=== PATIENT | female | born 1965 | race Caucasian/White ===

== ENCOUNTER → 2016-11-17 | Outpatient (CLI) | payer OTHER ==
[~2016-11-17] MED LIST: FLOMAX0.4 MG PO; IBUPROFEN 800800 M1 PO; TRAMADOL 50 MG50 MG PO
== END | disposition home or self-care (01) ==
LOC: LITH 06:46
DX: N20.0 Calculus of kidney (principal); Z98.890 Other specified postprocedural states

== ENCOUNTER 2017-06-16 21:08 | Inpatient (IN) | payer OTHER ==
[~2017-06-16] VITALS: Ht 172.7 cm; Wt 96.2 kg
--- NOTE | ~2017-06-16 | H ---
[facility] [place] [address] HISTORY AND PHYSICAL Name: MYRANDA BAHENA Room #: 407-P [facility] IN M.R.#: [id number] Admission: 06/16/17 Attend Phys: Bigg Alejandraaleja Rafaelshantelle Discharge: 06/18/17 Date of : 65 Report #: [id number] THIS REPORT FOR: //name// CC: Benedicto FATIMA DICTATED BY: Gregoria MCLAIN ATTENDING PHYSICIAN: Dr. Aburto. PRIMARY CARE PHYSICIAN: None. CHIEF COMPLAINT: Right flank pain. HISTORY OF PRESENT ILLNESS: The patient is a 52-year-old female who has a history of nephrolithiasis. She has had 3 prior lithotripsies and the last 2 were in October and November of this year. She started having right flank pain yesterday, but she has not felt well for the last few days. She has been having some low-grade fevers as well as chills. She has noticed increasing urinary frequency to the point she is voiding every 15 minutes. She has been having dysuria. She started taking some leftover Cipro that she had at home. Her pain got worse. She describes it as a dull ache that does become more severe at times. She did have some associated nausea and vomiting yesterday and continued to feel somewhat nauseous throughout the day. She had a normal bowel movement yesterday. She went into the ER initially at [facility], where her prior urologist had been. She was again noted to have a minimally obstructing right distal ureteral stone as well as a 22-mm nonobstructing calculus in the right renal pelvis. She had previously known about the large stone. She was given Toradol and fentanyl at [facility] and because they no longer have urology, she wanted to be transferred to [facility] so she would be within the [facility] network. She currently rates her pain 4-5/10 and stated that the Toradol and fentanyl really did not help that much. PAST MEDICAL HISTORY: Nephrolithiasis. PAST SURGICAL HISTORY: Lithotripsy x 3, x 1 and tonsillectomy. ALLERGIES: BACTRIM, UNKNOWN REACTION. HOME MEDICATIONS: Ibuprofen p.r.n. and tramadol p.r.n. SOCIAL HISTORY: The patient denies any tobacco, alcohol or drug use. She lives at home with her spouse. 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 FAMILY HISTORY: Her sisters are both diabetic. Her mother is alive and healthy. She does not know any medical information about her father. She does have an aunt with breast cancer and grandmother with pancreatic cancer. [address] [address] HISTORY AND PHYSICAL Name: MYRANDA BAHENA Room #: 407-P [facility] IN M.R.#: [id number] Admission: 06/16/17 Attend Phys: Bigg Rayo Discharge: 06/18/17 Date of : 65 Report #: [id number] REVIEW OF SYSTEMS: Twelve-point review of systems was reviewed with this patient and otherwise negative unless stated in the HPI. PHYSICAL EXAMINATION: GENERAL: The patient is an alert female in no acute distress. VITAL SIGNS: Temperature is 36.9, heart rate 107, respirations 15, blood pressure is 134/72 and oxygen 100% on room air. HEENT: PERRLA. Sclerae are nonicteric. Oral mucosa is pink and moist. NECK: Supple. No JVD noted. CARDIAC: Normal S1, S2. No murmurs, rubs or gallops. RESPIRATORY: Breath sounds are clear bilaterally. No wheezing or rhonchi. Breathing is nonlabored. ABDOMEN: Soft and nontender with positive bowel sounds. She does have some right CVA tenderness. VASCULAR: No edema noted. Pedal pulses are 2+. NEUROLOGIC: The patient is alert and oriented x 3. Speech is clear. She is moving all extremities equally and answering questions appropriately. No focal neuro deficits noted. LABS AND DIAGNOSTICS: WBC is 13.3, hemoglobin 13.6 and platelets 232,000. Sodium 140, potassium 3.5, BUN 22, creatinine 1.2 and glucose 118. U/A was positive for nitrite, large leukocyte esterase, large wbcs, large amount of blood and moderate bacteria. CT of abdomen and pelvis done at [facility] showed a 5.5 mm obstructing calculus in the distal right ureter, causing mild proximal hydroureteronephrosis, and there is a 22-mm nonobstructing calculus in the right renal pelvis with additional smaller, nonobstructing calculi in the right inferior renal pole and no perinephric stranding was seen. No left renal calculi noted. ASSESSMENT AND PLAN: 1. Obstructing right ureteral calculus. The patient will be kept n.p.o. after midnight to have Urology evaluate for possible cystoscopy in the morning. We will continue IV fluids. She was given a dose of Rocephin at [facility], which we will continue daily. Continue fentanyl and Toradol for pain control. 2. Urinary tract infection. This is likely secondary to the stone. We will follow urine cultures from [facility] and continue Rocephin daily. 3. Deep venous thrombosis prophylaxis. Place SCDs. We will continue to follow the patient closely throughout the hospitalization and make changes based on clinical status. <ELECTRONICALLY SIGNED> By: Benedicto Aburto MD 06/18/17 1827 0130 0200 Benedicto Aburto MD /nt
--- NOTE | ~2017-06-16 | O ---
[facility] [place] [address] OPERATIVE REPORT Name: MYRANDA BAHENA Room #: 407-P [facility] IN M.R.#: [id number] Admission: 06/16/17 Attend Phys: Bigg Rayo Discharge: Date of : 65 Report #: [id number] THIS REPORT FOR: //name// CC: Bigg FATIMA DATE OF SERVICE: 06/18/2017 DATE OF SERVICE: 06/18/2017 PREOPERATIVE DIAGNOSIS: Right ureteral and kidney stone. POSTOPERATIVE DIAGNOSIS: Right ureteral and kidney stone. PROCEDURE: Cystoscopy, right retrograde pyelogram, right ureteroscopy, stone extraction, right ureteral stent placement. SURGEON: Dr. Andreas James. PROPERTY MANAGEMENT INTERN: None. ANESTHESIA: General with LMA. ESTIMATED BLOOD LOSS: Minimal. FLUIDS: See anesthesia flow sheet. SPECIMEN: Stone for analysis. DRAINS: Right 6-Italian x 26 cm double-J ureteral stent. COMPLICATIONS: None. INDICATIONS: This is a 52-year-old woman with history of nephrolithiasis, had a known approximately 2 cm right renal pelvis stone, had prior failed shockwave lithotripsy. She was actually transferred from [facility] with right flank pain. A CT scan demonstrated approximately 2.2 cm renal calculus in the right renal pelvis as well as a 5 mm ureteral fragment near the UVJ. She had persistent pain, not been able to pass the fragment. We discussed options for further trial of passage versus possible ureteroscopy with stent placement. She desired to proceed with ureteroscopy. Risks, benefits, alternatives discussed at length, the risks including bleeding, infection, damage to the ureter, ureteral stricture, need for stent, need for subsequent procedures. She acknowledged that she understood these risks. She asked pertinent questions, which were answered and ultimately elected to proceed. Of note, we specifically discussed that this procedure would be to address her small obstructing ureteral [facility] [address] [place] [address] OPERATIVE REPORT Name: MYRANDA BAHENA Room #: 407-P ADM IN M.R.#: [id number] Admission: 06/16/17 Attend Phys: Bigg Rayo Discharge: Date of : 65 Report #: [id number] fragment. The large renal pelvis stone would need to be addressed at a later time given its size. PROCEDURE AND FINDINGS: The patient was identified in the preoperative holding area. She consented. She was transported to the cystoscopy suite where general anesthetic was administered. She was positioned in the dorsal lithotomy position with all appropriate pressure points padded. She was prepped and draped in the typical sterile fashion. A timeout was performed confirming correct patient, procedure and laterality. She was on scheduled IV antibiotics on the floor. We began by inserting the rigid cystoscope through the urethra into the bladder. Urethra and bladder neck were without abnormalities. Bladder demonstrated mild cystocele. No stones, tumors, or papillary lesions. Bilateral ureteral orifices were orthotopic in position. Right ureteral orifice was identified. This was gently cannulated with a 5 Italian open-ended catheter. Retrograde pyelogram was performed demonstrating [id number] hydroureteronephrosis all the way down to the right distal ureter. The distal fragment was not well seen; however, the approximately 2 cm renal pelvis stone was visualized. There were no other filling defects. Sensor wire was placed through the ureteral orifice up into the right kidney. A 6.9 Italian rigid ureteroscope was then gently passed through the urethra into the bladder and up the right ureteral orifice. A stone was encountered approximately 5-10 mm from the orifice. This was grasped with a 1.9 Italian nitinol basket and extracted and sent for stone analysis. A 6-Italian x 26 cm double-J ureteral stent was then placed under radiographic guidance with good proximal and distal curls confirmed. Bladder was drained, scope was removed, procedure was terminated. The patient was awakened and transported to recovery room having suffered no apparent complication. Plan will be for an interval procedure to address her large right renal pelvis stone. I have offered her a right percutaneous nephrolithotomy versus a repeat right ureteroscopy, possibly in two stages. By: [id number] Andreas James MD /nt
--- NOTE | ~2017-06-16 | HC ---
[facility] [place] [address] CONSULTATION Name: JOSEFMYRANDA Room #: 407-P ADM IN M.R.#: [id number] Admission: 06/16/17 Attend Phys: Bigg Rayo Discharge: Date of : 65 Report #: [id number] THIS REPORT FOR: //name// CC: Bigg FATIMA CHIEF COMPLAINT: Right ureteral stone. HISTORY OF PRESENT ILLNESS: The patient is a delightful 52-year-old woman who is being seen today at the request of Dr. Aburto for evaluation and management of a right distal ureteral stone. Specifically, she presented to [facility] with severe right flank pain and intermittent chills. She was transferred to [place] for definitive management; however, she has had several months of right back pain and has had pain for the last 4 days. Her history is significant for undergoing lithotripsy last spring and at that time she reports her stone was about 1.7 cm in the right kidney; however, the CT report from [place] reveals a 22 mm stone in the right renal pelvis as well as a right distal ureteral stone. ALLERGIES: SULFA. MEDICATIONS: Ibuprofen and tramadol. PAST SURGICAL HISTORY: Lithotripsy, , tonsillectomy. ILLNESSES: Nephrolithiasis. FAMILY HISTORY: Sisters are diabetic. She has an aunt with breast cancer, grandmother with pancreatic cancer. REVIEW OF SYSTEMS: She denies shortness of breath or chest pain. PHYSICAL EXAMINATION: GENERAL: She is a comfortable-appearing woman, sitting up in bed. VITAL SIGNS: Temperature is 36.9, pulse 89, blood pressure 101/66. ABDOMEN: Soft, without masses. LABORATORY DATA: White count 8.9, hemoglobin 11.7, hematocrit 33.9, platelets 209,000. Sodium 142, potassium 3.9, chloride 110, CO2 is 25, BUN 21, creatinine 1.2, calcium 8.7. Urinalysis was positive for nitrites and leukocyte esterase and white cells with moderate bacteria. IMPRESSION: Partially obstructing right distal ureteral stone. PLAN: Discussed endoscopic management of this right distal ureteral stone with laser ablation and/or stent placement. Risks, benefits, and complications were discussed including risk of open surgery, sepsis and bleeding. She understands [address] [address] CONSULTATION Name: MYRANDA BAHENA Room #: [facility] IN M.R.#: [id number] Admission: 06/16/17 Attend Phys: Bigg Rayo Discharge: Date of : 65 Report #: [id number] complications could occur, which may not have been foreseen or discussed. If she is found to have purulent matter from her kidney, she may undergo stenting only. <ELECTRONICALLY SIGNED> By: Johnathon Wade MD 06/18/17 0642 [id number] MD dinesh Obregon
[2017-06-16 22:55] VITALS: BP 134/72
[2017-06-17 04:28] VITALS: BP 101/66
[2017-06-17 06:06] LABS: HEMATOCRIT 33.9 % (37.0-47.0); HEMOGLOBIN 11.7 gm/dL (12.0-15.0); MCH 29.4 pg (26.0-34.0); MCHC 34.4 g/dL (28.0-37.0); MCV 85.7 fL (80.0-100.0); RBC 3.96 mil/uL (4.20-5.00); RDW 13.4 % (10.5-14.5); WBC 8.9 thou/uL (4.0-11.0)
[2017-06-17 06:21] LABS: CALCIUM 8.7 mg/dL (8.5-10.1); CREATININE 1.2 mg/dL (0.6-1.0); POTASSIUM 3.9 mmol/L (3.5-5.1)
[2017-06-17 08:07] VITALS: BP 118/77
[2017-06-17 20:00] VITALS: BP 128/77
[2017-06-17 20:02] LABS: URINE BILIRUBIN NEGATIVE (Negative); URINE BLOOD 2+ (Negative); URINE COLOR YELLOW; URINE GLUCOSE-RANDOM* NEGATIVE (Negative); URINE KETONES NEGATIVE (Negative); URINE PROTEIN (DIPSTICK) TRACE (Negative); URINE UROBILINOGEN 0.2 E.U./dl (0.2-1.0)
[2017-06-17 20:06] LABS: URINE LEUKOCYTES-REFLEX 2+ (Negative)
[2017-06-17 20:19] LABS: CRYSTALS None Seen /LPF (None Seen); SQUAMOUS 4-10 Moderate /LPF (0-3)
[2017-06-17 20:20] LABS: CASTS None Seen /LPF (None Seen); URINE RBC 0-2 Rare /HPF (0-2); URINE WBC-REFLEX >25 Many /HPF (0-5)
[2017-06-18 03:58] LABS: ABSOLUTE NEUTROPHILS 4.3 thou/uL (1.4-8.2); BASOPHILS 0.6 % (0.0-2.0); EOSINOPHILS 3.8 % (0.0-3.0); HEMATOCRIT 32.8 % (37.0-47.0); HEMOGLOBIN 11.1 gm/dL (12.0-15.0); LYMPHOCYTES 25.4 % (24.0-44.0); MANUAL DIFF NO; MCH 29.4 pg (26.0-34.0); MCHC 33.7 g/dL (28.0-37.0); MCV 87.2 fL (80.0-100.0); MONOCYTES 6.4 % (1.0-8.0); PLATELET COUNT 204 thou/uL (150-400); POLYS 63.8 % (36.0-66.0); RBC 3.76 mil/uL (4.20-5.00); RDW 13.3 % (10.5-14.5); WBC 6.7 thou/uL (4.0-11.0)
[2017-06-18 04:07] LABS: CALCIUM 8.4 mg/dL (8.5-10.1); CREATININE 0.9 mg/dL (0.6-1.0); MAGNESIUM 1.5 mg/dL (1.8-2.4); POTASSIUM 3.6 mmol/L (3.5-5.1)
[2017-06-18 04:30] VITALS: BP 128/77
[2017-06-18 08:09] VITALS: BP 116/95
[2017-06-18 10:13] VITALS: BP 141/69
[2017-06-18] MEDS ORDERED: CIPRO500 MG PO (14:55)
[2017-06-18] MEDS ORDERED: TRAMADOL 50 MG50 MG PO (14:55)
[2017-06-18] MEDS ORDERED: FLOMAX0.4 MG PO (14:55)
[2017-06-18 15:31] VITALS: BP 113/65
[2017-06-18 16:19] VITALS: BP 113/65
== END 2017-06-18 18:25 | disposition home or self-care (01) | DRG 668 ==
LOC: 4N 21:08
PROVIDERS: Internal Medicine Critical Care Medicine; Nurse Practitioner; Nurse Practitioner Acute Care
PROC: 0TC68ZZ Extirpation of Matter from Right Ureter, Via Natural or Artificial Opening Endoscopic (ICD-10-PCS; principal; 2017-06-18)
PROC: 0T768DZ Dilation of Right Ureter with Intraluminal Device, Via Natural or Artificial Opening Endoscopic (ICD-10-PCS; 2017-06-18)
PROC: BT1D1ZZ Fluoroscopy of Right Kidney, Ureter and Bladder using Low Osmolar Contrast (ICD-10-PCS; 2017-06-18)
DX: N20.2 Calculus of kidney with calculus of ureter (principal); N17.0 Acute kidney failure with tubular necrosis; N39.0 Urinary tract infection, site not specified; N28.9 Disorder of kidney and ureter, unspecified; E83.42 Hypomagnesemia; Z88.1 Allergy status to other antibiotic agents; Z83.3 Family history of diabetes mellitus; Z80.0 Family history of malignant neoplasm of digestive organs; Z88.2 Allergy status to sulfonamides; Z80.3 Family history of malignant neoplasm of breast
CPT/HCPCS: 10790; 50010; 50101; 50164; 50478; 51620; 51767; 56674; 62110; 62900; 64037; 70005

== ENCOUNTER 2021-01-28 07:29 | Emergency (ER) | payer OTHER ==
[~2021-01-28] VITALS: Ht 172.7 cm; Wt 102.1 kg
[~2021-01-28 07:29] MED LIST changes: +CIPRO500 MG PO; +MACROBID 100 M100 M2 PO
[2021-01-28] MEDS ORDERED: SUPER THERAVIT1 EACH PO (07:38)
[2021-01-28] MEDS ORDERED: VIT D3 PO (07:38)
[2021-01-28 07:57] LABS: URINE BILIRUBIN NEGATIVE (Negative); URINE BLOOD 3+ (Negative); URINE CLARITY CLEAR; URINE COLOR YELLOW; URINE GLUCOSE-RANDOM* NEGATIVE (Negative); URINE KETONES NEGATIVE (Negative); URINE LEUKOCYTES-REFLEX NEGATIVE (Negative); URINE NITRITE-REFLEX NEGATIVE (Negative); URINE PROTEIN (DIPSTICK) NEGATIVE (Negative); URINE SPECIFIC GRAVITY >= 1.030 (1.005-1.035); URINE UROBILINOGEN 0.2 E.U./dl (0.2-1.0)
[2021-01-28 08:10] LABS: SQUAMOUS >10 Many /LPF (0-3)
[2021-01-28 08:11] LABS: CASTS None Seen /LPF (None Seen); MUCUS >6 Heavy strn/LPF (None Seen)
[2021-01-28 08:12] LABS: BACTERIA-REFLEX None Seen /HPF (None Seen); CRYSTALS None Seen /LPF (None Seen); URINE WBC-REFLEX 0-5 Rare /HPF (0-5)
[2021-01-28 09:22] LABS: ABSOLUTE NEUTROPHILS 4.6 thou/uL (1.4-8.2); BASOPHILS 0.5 % (0.0-2.0); EOSINOPHILS 3.1 % (0.0-3.0); HEMOGLOBIN 13.6 gm/dL (12.0-15.0); LYMPHOCYTES 18.9 % (24.0-44.0); MCH 28.9 pg (26.0-34.0); MCHC 33.2 g/dL (28.0-37.0); MCV 87.1 fL (80.0-100.0); MONOCYTES 5.7 % (1.0-8.0); PLATELET COUNT 237 thou/uL (150-400); POLYS 71.8 % (36.0-66.0); RDW 13.9 % (10.5-14.5); WBC 6.4 thou/uL (4.0-11.0)
[2021-01-28 09:31] LABS: CALCIUM 8.7 mg/dL (8.5-10.1); CREATININE 0.9 mg/dL (0.6-1.0); POTASSIUM 3.8 mmol/L (3.5-5.1)
[2021-01-28 09:38] LABS: ALBUMIN 3.6 g/dL (3.4-5.0); TOTAL BILIRUBIN 0.4 mg/dL (0.2-1.0)
[2021-01-28] MEDS ORDERED: TAMSULOSIN HCL0.4 MG PO (09:45)
[2021-01-28] MEDS ORDERED: ZOFRAN ODT4 MG PO (09:45)
[2021-01-28] MEDS ORDERED: NORCO5 PO (09:45)
[2021-01-28 10:05] VITALS: BP 126/65
== END 2021-01-28 10:10 | disposition home or self-care (01) ==
LOC: ER 07:29
PROVIDERS: Emergency Medicine
DX: N20.1 Calculus of ureter (principal); Z87.442 Personal history of urinary calculi; Z90.89 Acquired absence of other organs; Z98.890 Other specified postprocedural states; Z79.899 Other long term (current) drug therapy; Z88.2 Allergy status to sulfonamides

== ENCOUNTER → 2021-02-03 | Outpatient (CLI) | payer OTHER ==
[~2021-02-03] MED LIST changes: +NORCO5 PO; +SUPER THERAVIT1 EACH PO; +TAMSULOSIN HCL0.4 MG PO; +VIT D3 PO; +ZOFRAN ODT4 MG PO
== END ==
LOC: MRI 07:54
DX: Z53.9 Procedure and treatment not carried out, unspecified reason (principal)

== ENCOUNTER → 2021-03-19 | Day surgery (SDC) | payer OTHER ==
[~2021-03-19] VITALS: Ht 172.7 cm; Wt 99.8 kg
--- NOTE | ~2021-03-19 | O ---
[facility] [place] [address] OPERATIVE REPORT Name: MYRANDA BAHENA Room #: [facility].#: [id number] Admission: 03/19/21 Attend Phys: Andreas James MD Discharge: Date of : 65 Report #: [id number] THIS REPORT FOR: cc: FAM - Family physician unknown FAM - Family physician unknown Andreas James MD ~ DATE OF SERVICE: 03/19/2021 PREOPERATIVE DIAGNOSIS: Right ureteral stone. POSTOPERATIVE DIAGNOSIS: Right ureteral stone. PROCEDURE PERFORMED: Cystoscopy, right retrograde pyelogram, right diagnostic ureteroscopy. SURGEON: Andreas James MD BRIDGE OPERATOR: None. ANESTHESIA: General. ESTIMATED BLOOD LOSS: Minimal. FLUIDS: See anesthesia flow sheet. SPECIMENS: None. DRAINS: None. COMPLICATIONS: None. INDICATIONS FOR PROCEDURE: A 56-year-old woman with a history of recurrent nephrolithiasis, was found to have right-sided distal ureteral stone evaluation for flank and abdominal pain. She saw me in consultation with still having pain at that time. Also, unfortunately is undergoing chemotherapy for breast cancer and had some mild renal insufficiency recently, she has not seen a stone pass. Sent her for a KUB which did not definitively demonstrate the stone. We discussed option for a ureteroscopy with possible laser lithotripsy, stent placement. Risks, benefits and alternatives were discussed at length the risks including bleeding, infection, damage to urethra, bladder, ureter, need for subsequent procedures and treatments as well as cardiopulmonary complications from anesthesia. As she was still having pain and was starting a cycle of chemotherapy a little over a week, we did decide to proceed. PROCEDURAL FINDINGS: The patient was identified in the preoperative holding area. She is marked and consented. She was transported to the operative suite [facility] [address] [place] [address] OPERATIVE REPORT Name: MYRANDA BAHENA Teresa Room #: [facility].#: [id number] Admission: 03/19/21 Attend Phys: Andreas James MD Discharge: Date of : 65 Report #: [id number] where general anesthetic was administered. She was positioned in lithotomy position with all appropriate pressure points padded. She was prepped and draped in typical sterile fashion. Time-out was performed confirming correct patient, procedure and laterality. She received preoperative IV antibiotics. We began by placing the rigid cystoscope through the urethra into the bladder. Urethra and bladder neck are unremarkable. Bladder was normal in appearance. No stones, tumors or other lesions. Bilateral ureteral orifices orthotopic in position, normal in appearance. The right ureteral orifice was identified and it was gently cannulated with 5-Lao open-ended catheter. A gentle retrograde pyelogram was performed, it demonstrated minimal dilation of the right collecting system. No concerning filling defects. Given her report of continued pain and no passage of stone, I did feel it was necessary to confirm that the stone had passed. I placed a Sensor wire up the right ureteral orifice coiled this in the right renal pelvis, placed a rigid ureteroscope carefully through the urethra into the bladder and up the right ureteral orifice, examined the entirety of the right ureter. This was clear of stone and it apparently passed without her realizing. I was able to pass the scope all the way up to the UPJ, visualized the renal pelvis and again did not see any stone. The ureter was widely patent without concerning lesions. The scope was carefully removed. We replaced the cystoscope in the bladder. Bladder was drained, scope was removed. The procedure was terminated. The patient was awakened and transported to recovery room, having suffered no apparent complications having tolerated the procedure well. By: [id number] Andreas James MD /nt
[2021-03-19 11:40] VITALS: BP 127/78
== END | disposition home or self-care (01) ==
LOC: OR 10:53
PROVIDERS: ATTEND Urology
DX: N20.1 Calculus of ureter (principal); R10.9 Unspecified abdominal pain; Z98.890 Other specified postprocedural states; Z79.899 Other long term (current) drug therapy; Z88.2 Allergy status to sulfonamides; Z88.8 Allergy status to other drugs, medicaments and biological substances; Z85.3 Personal history of malignant neoplasm of breast; Z87.442 Personal history of urinary calculi
CPT/HCPCS: 50010; 50101; 56674; 56815; 57160; 58565; 58732; 62110; 62900; 70005